=== PATIENT | female | born 1990 | race Caucasian/White ===

== ENCOUNTER 2016-10-21 18:03 | Emergency (ER) | payer OTHER ==
[~2016-10-21 18:03] MED LIST: ALLOPURINOL300 MG PO; COLCHICINE PO; HYDROCODON-ACE1 EAC7 PO; LIPITOR; NO MEDICATIONS; PREDNISONE PO; SYNTHROID; TRICOR; TYLENOL #4 PO; ULTRAM PO; VOLTAREN75 MG PO; [UNRECOGNIZED DRUG - OTHER]
== END 2016-10-21 18:19 | disposition home or self-care (01) ==
LOC: CFTX 18:03
DX: M25.571 Pain in right ankle and joints of right foot (principal); E07.9 Disorder of thyroid, unspecified; M10.9 Gout, unspecified; Z88.8 Allergy status to other drugs, medicaments and biological substances
CPT/HCPCS: 29405; 99283